=== PATIENT | female | born 1985 | race Caucasian/White ===

== ENCOUNTER 2020-08-11 20:41 | Emergency (ER) | payer BC ==
--- NOTE | 2020-08-11 21:19 | NUR ---
CALLED 3 TIMES NO ASWER, PT LEFT W/O BEING TRIAGED
--- NOTE | 2020-08-11 21:20 | NUR ---
EKG NOT DONE, PT LW/O BEING TRIAGED
== END 2020-08-11 21:21 | disposition left against medical advice (07) ==
LOC: ER 20:41
DX: Z75.3 Unavailability and inaccessibility of health-care facilities (principal)